=== PATIENT | male | born 1965 | race Caucasian/White ===

== ENCOUNTER 2018-06-03 06:27 | Inpatient (IN) | payer OTHER ==
[2018-04-20 08:23] VITALS: BMI 33.0
--- NOTE | 2018-05-03 12:49 | PAT Medication Instructions ---
Service Date May 03, 2018. Current Home Medication List Amitriptyline Hcl (Elavil), 1 TAB PO HS Amlodipine (Norvasc), 5 MG PO DAILY Bupropion (Wellbutrin Sr), 150 MG PO QAM Cetirizine (Zyrtec), 10 MG PO QAM PRN for Seasonal Allergies Methocarbamol (Robaxin), 500 MG PO TID Morphine Sulfate (Ms Contin), 60 MG PO Q12 Oxycodone Ir (Roxicodone Ir), 5 MG PO Q6H PRN for Pain Medication Instructions For Your Scheduled Surgery - Hold the following medications the morning of surgery: Methocarbamol (Robaxin), 500 MG PO TID - Take the following medications the morning of surgery with a sip of water: * OTHERWISE NOTHING TO EAT OR DRINK AFTER MIDNIGHT* Amlodipine (Norvasc), 5 MG PO DAILY Bupropion (Wellbutrin Sr), 150 MG PO QAM Morphine Sulfate (Ms Contin), 60 MG PO Q12 *UP TO 4 HOURS PRIOR TO SURGERY* Oxycodone Ir (Roxicodone Ir), 5 MG PO Q6H PRN for Pain *UP TO 4 HOURS PRIOR TO SURGERY* - Take the following medications as scheduled the night before surgery: Amitriptyline Hcl (Elavil), 1 TAB PO HS Cetirizine (Zyrtec), 10 MG PO QPM PRN for Seasonal Allergies Methocarbamol (Robaxin), 500 MG PO TID Morphine Sulfate (Ms Contin), 60 MG PO Q12 Oxycodone Ir (Roxicodone Ir), 5 MG PO Q6H PRN for Pain If you have any questions please call us at [phone] or [phone] or [phone]
--- NOTE | 2018-05-03 13:22 | DIAGNOSTIC IMAGING REPORT ---
CHEST 2 VIEWS ROUTINE CLINICAL HISTORY: Preoperative evaluation COMPARISON STUDY: Chest radiograph July 04, 2013. FINDINGS: Incidental note is made of an anterior cervical spine fusion. No pneumothorax or pleural effusion is noted. There is no consolidation or evidence for pulmonary edema. Borderline cardiomegaly is noted. IMPRESSION: No acute cardiopulmonary findings. Electronically signed by: Shaka Giraldo M.D. 05/03/2018 1:20 PM Dictated Date/Time: 05/03/2018 1:20 PM
[2018-05-03 13:30] LABS: PTT PATIENT 24.7 SECONDS (21.0-31.0)
--- NOTE | 2018-06-01 13:00 | HISTORY & PHYSICAL EXAMINATION ---
DATE OF ADMISSION: 06/03/2018 CHIEF COMPLAINT: Medial compartmental arthritis of the left knee. HISTORY OF PRESENT ILLNESS: Ed is a pleasant 52-year-old male who is about a year and a half status post left knee arthroscopy with continued knee pain. He was found to have medial compartmental arthritis during the scope procedure. Unfortunately, his knee pain has continued and he has continued to have swelling of his knee. He has failed multiple cortisone injections and has elected to proceed with a unicompartmental knee arthroplasty. PAST MEDICAL HISTORY: Significant for depression and chronic pain. PAST SURGICAL HISTORY: Significant for an L5-S1 fusion in 2005, a C5-C7 fusion in 2011 and a right shoulder arthroscopy and a left knee arthroscopy. ALLERGIES: None. MEDICATIONS: Include morphine, oxycodone, methocarbamol, amitriptyline, Wellbutrin, atorvastatin, and amlodipine. FAMILY HISTORY: Denies. SOCIAL HISTORY: He is , rarely drinks. Remains active. REVIEW OF SYSTEMS: He complains mostly of left knee pain. All other pertinent review of systems are negative. PHYSICAL EXAMINATION: GENERAL: He is awake, alert and oriented x3. He is in no apparent distress. He is very pleasant. HEENT: Pupils equal, round, reactive to light. Extraocular movements intact. Oral mucosa is pink and moist. HEART: Regular rate per radial pulse. LUNGS: Constance symmetrically bilaterally with no audible breath sounds. ABDOMEN: Soft, nontender, nondistended. MUSCULOSKELETAL: On physical examination of the left knee, he ambulates independently. His range of motion is from 0-120 degrees. He has significant tenderness to palpation along the medial joint line and over the distal medial femoral condyle. He has no pain on the lateral side. IMAGING DATA: X-rays of the left knee do show mild to moderate osteoarthritis mostly involving the medial compartment. There is some slight joint space narrowing. Arthroscopic pictures do show advanced grade 4 chondral changes off the distal medial femoral condyle. IMPRESSION: Medial compartmental arthritis of the left knee. PLAN: Will proceed with a left knee unicompartmental arthroplasty. Postoperatively, he will be kept overnight for postoperative medical management. We will discharge him to home the next day with [facility] physical therapy.
[~2018-06-03] VITALS: Ht 167.6 cm; Wt 93.2 kg
[2018-06-03] VITALS (9 sets, daily range): BP systolic 111–159; BP diastolic 65–95; PULSE 62–95; TEMP 36.5–36.9; O2SAT 92–98; Ht 167.6 cm; Wt 93.2 kg
[~2018-06-03 06:27] MED LIST: ACETAMINOPHEN 500 MG TAB PO SCH; AMIT25TA9 PO; AMLO5TAB3 PO; BUPR-79 PO; CEFAZOLIN 2000MG IV PUSH 15 ML IV SCH; CETI10TA84 PO; FAMOTIDINE 20 MG TAB PO SCH; GABAPENTIN 900 MG PO SCH; LACTATED RINGER'S 1000ML 1,000 ML IV SCH; LACTATED RINGER'S 1000ML 500 ML IV SCH; LACTATED RINGER'S 1000ML IV SCH; METH500T37 PO; MORP60TA69 PO; OXYC-90 PO; ROPIVACAINE 5MG/ML 30 ML 150 MG, BUPIVACAINE 0.5% MPF INJ 30 ML, EpINEphrine HCL INJ 0.... INFIL SCH
[2018-06-03] MEDS ORDERED: ROPIVACAINE 0.5% 5 MG/ML 30 ML VIAL ONE (06:34)
[2018-06-03] MEDS ORDERED: BUPIVACAINE 0.5 % 5 MG/1 ML PF 10ML VIAL ONE (06:34)
--- NOTE | 2018-06-03 06:42 | History & Physical Bridge Note ---
H&P Re-Evaluation Bridge Note: I have examined the patient, reviewed the History & Physical and in the interval since the performance of the History & Physical I have noted the following changes of clinical significance: No changes noted
[2018-06-03] MEDS ORDERED: OXYCODONE HCL IR 5 MG TAB (IMMEDIATE RELEASE) PO PRN (07:00)
[2018-06-03] MEDS ORDERED: BISACODYL 10 MG SUPP PR PRN (07:00)
[2018-06-03] MEDS ORDERED: METOCLOPRAMIDE HCL INJ 5 MG/ML 2 ML VIAL IV PRN (07:00)
[2018-06-03] MEDS ORDERED: MAGNESIUM HYDROXIDE SUSP 30 ML UDC PO PRN (07:00)
[2018-06-03] MEDS ORDERED: CETIRIZINE HCL 10 MG TAB PO PRN (07:00)
[2018-06-03] MEDS ORDERED: SOD PHOSPHATE/SOD BIPHOSPHATE ENEMA 132 ML BTL PR PRN (07:00)
[2018-06-03] MEDS ORDERED: ONDANSETRON INJ 2 MG/ML 2 ML VIAL IV PRN ×2 (07:00→08:15)
[2018-06-03] MEDS ORDERED: MoRPHine SULFATE 2 MG/ML CARP IV PRN (07:00)
[2018-06-03] MEDS ORDERED: ORTHO JOINT ANESTHETIC ONE (07:11)
[2018-06-03] MEDS ORDERED: BACITRACIN 50000 UNIT VIAL ONE (07:12)
[2018-06-03] MEDS ORDERED: MIDAZOLAM HCL 1 MG/ML 2ML VIAL ONE ×2 (07:43→08:43)
[2018-06-03] MEDS ORDERED: FENTANYL CITRATE INJ 50 MCG/1 ML 2 ML VIAL ONE (07:43)
[2018-06-03] MEDS ORDERED: LABETALOL HCL IV 5 MG/ML 20ML IV PRN (08:15)
[2018-06-03] MEDS ORDERED: HYDROmorphone INJ 2 MG/ML SYR/VIAL IV PRN (08:15)
[2018-06-03] MEDS ORDERED: ATROPINE SULFATE 0.1 MG/ML 5ML SYR IV PRN (08:15)
[2018-06-03] MEDS ORDERED: FENTANYL CITRATE INJ 50 MCG/1 ML 2 ML VIAL IV PRN (08:15)
[2018-06-03] MEDS ORDERED: NALOXONE HCL 0.4 MG/1 ML VIAL/CARP IV PRN (08:15)
[2018-06-03] MEDS ORDERED: FLUMAZENIL 0.1 MG/1 ML 10 ML VIAL IV PRN (08:15)
[2018-06-03] MEDS ORDERED: MEPERIDINE HCL 25 MG/ML CARP IV PRN (08:15)
[2018-06-03] MEDS ORDERED: PHENYLEPHRINE 100MCG/ML 5ML SYR IV PRN (08:15)
[2018-06-03] MEDS ORDERED: EpHEDrine SULFATE INJ 50 MG/ML AMP IV PRN (08:15)
[2018-06-03] MEDS: TRANEXAMIC ACID INJ 1,000 MG x 2 Bags IV SCH ×4 (08:44→12:44)
[2018-06-03] MEDS ORDERED: MoRPHine SULFATE CR 60 MG TAB (MS CONTIN) PO SCH (09:00)
[2018-06-03] MEDS ORDERED: LIDOCAINE HCL 2% 2 ML VIAL (20MG/ML) ONE (10:22)
[2018-06-03] MEDS ORDERED: PROPOFOL IV EMULSION 10 MG/ML 20 ML VIAL ONE (10:22)
[2018-06-03] MEDS ORDERED: GLYCOPYRROLATE INJ 0.2 MG/ML VIAL ONE (10:23)
--- NOTE | 2018-06-03 10:23 | [facility] Post Operative Brief Note ---
Immediate Operative Summary Operative Date Jun 03, 2018. Pre-Operative Diagnosis Left knee medial compartment arthritis Post-Operative Diagnosis Left knee medial compartment arthritis Procedure(s) Performed Left knee unicompartmental arthroplasty Surgeon Dr. Fernando Jd Edwards Consultant Surgeon(s) Kush Brink PA-C Estimated Blood Loss 5 cc Findings Consistent with Post-Op Diagnosis Specimens Left knee bone and tissue Anesthesia Type [facility]
--- NOTE | 2018-06-03 11:25 | DIAGNOSTIC IMAGING REPORT ---
L KNEE 1 OR 2 VIEWS ROUTINE CLINICAL HISTORY: AP/LATERAL IN PACU LEFT KNEE pain COMPARISON: None. DISCUSSION: Anatomic alignment post left knee medial joint arthroplasty. Expected soft tissue postoperative change. Good contact between prosthetic and underlying bone. IMPRESSION: Anatomic alignment post medial joint arthroplasty. The above report was generated using voice recognition software. It may contain grammatical, syntax or spelling errors. Electronically signed by: Eddie Thakkar M.D. 06/03/2018 11:23 AM Dictated Date/Time: 06/03/2018 11:23 AM
--- NOTE | 2018-06-03 11:44 | Anesthesiology Progress Note ---
Anesthesia Post Op Note Date & Time Jun 03, 2018 at 11:44 Vital Signs Pain Intensity: 0 Vital Signs Past 12 Hours Date Time Temp Pulse Resp B/P (MAP) Pulse Ox O2 Delivery O2 Flow Rate FiO2 06/03/18 11:35 72 16 116/68 94 Room Air 06/03/18 11:25 64 16 130/86 96 Room Air 06/03/18 11:15 68 16 126/77 99 Oxymask 5 06/03/18 11:05 71 14 112/68 100 Oxymask 5 06/03/18 10:57 36.5 71 16 102/65 93 Oxymask 10 06/03/18 06:56 36.6 85 18 159/95 98 Room Air Notes Mental Status: alert / awake / arousable, participated in evaluation Pt Amnestic to Procedure: Yes Nausea / Vomiting: adequately controlled Pain: adequately controlled Airway Patency, RR, SpO2: stable & adequate BP & HR: stable & adequate Hydration State: stable & adequate Anesthetic Complications: no major complications apparent
--- NOTE | 2018-06-03 12:17 | OPERATIVE REPORT ---
DATE OF OPERATION: 06/03/2018 PREOPERATIVE DIAGNOSIS: Medial compartmental arthritis of the left knee. POSTOPERATIVE DIAGNOSIS: Medial compartmental arthritis of the left knee. PROCEDURE: Left unicompartmental knee arthroplasty. SURGEON: Dr. Oleksandr Fernando. APPARATUS LINEMAN: Estevan Brink PA-C, whose assistance was necessary for retraction and closure. ANESTHESIA: Spinal with a left adductor nerve block. COMPLICATIONS: None. CONDITION: Stable to PACU. IMPLANTS USED: I used a [employer] [place] left total knee arthroplasty system with a size medium femur, a size C tibia and a 4 mm polyethylene bearing. INDICATIONS: Ed is a pleasant 52-year-old male, who has been dealing with chronic left knee pain. I did an arthroscopy on about a year ago showed rather significant medial compartmental arthritis. He has been swelling and having pain over the past year. After failing extensive conservative treatment, he elected to proceed with a unicompartmental knee arthroplasty. OPERATION AND FINDINGS: On 06/03/2018, he arrived at [facility] for the above procedure. He was seen in the preoperative holding and the operative extremity was identified and signed. He was given a preoperative antibiotic, taken back to the operating room, laid on the table in supine position and given basic sedation. The left knee was then prepped and draped in sterile fashion. Time-out was done. The patient's operative extremity was properly identified. A longitudinal incision was made just medial to the extensor mechanism. Dissection was taken down to the patella and a medial parapatellar arthrotomy was used. The medial retinaculum was released. The knee was exposed. There was arthritis throughout the distal medial femoral condyle, mild arthritis in the patellofemoral joint. The ACL was intact. The lateral compartment looked good. A size medium spoon seemed to be the best fit. An external tibial guide was then attached along with a size 4 G clamp. The tibial cutting guide was then pinned and a sagittal saw was used to make the sagittal resection and an oscillating saw was used to make the transverse resection. The proximal tibia was then removed. A drill was sent down the center of the femoral canal, followed by a long intramedullary guide. Off that guide, a cross-linked was used to clamp on the distal femur. Two drill holes were made in the distal femur in line with the medial condyle. A posterior resection guide was impacted into place and the posterior portion of the medial femoral condyle was resected. A 0 spigot was then impacted into place and a Mill was used to mill the distal femur. A trial femur was placed followed by a size C trial tibia. In flexion, the spacer measured to be a size 4, and in extension, it measured to be a size 2. The trials were all removed. The size 2 spigot was then impacted into place and the distal femur was milled. The more anterior femur was then milled. A trial femur was then impacted into place followed by the size C tibia. A size 4 insert felt to be stable both in flexion and extension. Trials were removed. Osteophytes were removed. A toothbrush saw was used to resect the keel for the tibial plate. The wound was irrigated. The distal femur was drilled with several drill holes to promote cement interdigitation. The final components were then cemented in place with [place]os-G cement. Once cement had hardened, a size 4 polyethylene insert seemed to be the best fit and the final size 4 poly was then snapped into place. The knee was brought through a full range of motion and felt to be stable. Surrounding soft tissues were injected with 100 mL of an orthopedic pain control cocktail. The knee was irrigated with 3 liters of normal saline solution with bacitracin. The tourniquet was deflated. Hemostasis was easily controlled. The extensor mechanism was then closed with #1 Vicryl suture. Skin was closed with 2-0 Vicryl, 3-0 V-Loc suture and mann. He was then placed in a soft compressive dressing, transferred to a litter and taken to the postanesthesia care unit in stable condition. He tolerated the procedure well. I attest to the content of the Intraoperative Record and any orders documented therein. Any exception s are noted below.
[2018-06-03] MEDS ORDERED: NURSING VERBAL MED ORDER ONE (12:45)
[2018-06-03] MEDS: MULTIVITAMIN TAB PO SCH (13:28)
[2018-06-03] MEDS: AMLODIPINE BESYLATE 5 MG TAB PO SCH (13:58)
[2018-06-03] MEDS: KETOROLAC TROMETHAMINE 30 MG/ML VIAL IV. SCH ×2 (13:58→21:19)
[2018-06-03] MEDS: ACETAMINOPHEN 500 MG TAB PO SCH ×2 (13:59→21:19)
[2018-06-03] MEDS: BuPROPion SR 150 MG TABCR PO SCH (13:59)
[2018-06-03] MEDS: METHOCARBAMOL 500 MG TAB PO SCH ×2 (13:59→21:20)
[2018-06-03] MEDS: SODIUM CHLORIDE 0.9% 1000ML 1,000 ML IV SCH (16:34)
[2018-06-03] MEDS: CEFAZOLIN IV 2,000 MG in SYRINGE 0 ML IV SCH (16:35)
[2018-06-03] MEDS ORDERED: AMITRIPTYLINE HCL 25 MG TAB PO SCH (21:00)
[2018-06-03] MEDS ORDERED: SENNA 8.6 MG TAB PO SCH (21:00)
[2018-06-03] MEDS: DOCUSATE SODIUM 100 MG CAP PO SCH (21:19)
[2018-06-03] MEDS: ASPIRIN 325 MG ECTAB PO SCH (21:20)
[2018-06-03] MEDS: MoRPHine SULFATE CR 60 MG TAB (MS CONTIN) PO SCH (21:24)
[2018-06-04] MEDS: CEFAZOLIN IV 2,000 MG in SYRINGE 0 ML IV SCH (00:22)
[2018-06-04] MEDS: KETOROLAC TROMETHAMINE 30 MG/ML VIAL IV. SCH ×2 (01:57→07:34)
[2018-06-04] MEDS: SODIUM CHLORIDE 0.9% 1000ML 1,000 ML IV SCH (01:58)
[2018-06-04 03:40] VITALS: BP 118/67; PULSE 75; TEMP 36.8; O2SAT 98
[2018-06-04] MEDS: ACETAMINOPHEN 500 MG TAB PO SCH (05:45)
[2018-06-04 06:01] VITALS: BP 118/67; PULSE 75; TEMP 36.8; O2SAT 98
[2018-06-04 06:26] LABS: HEMATOCRIT 36.7 % (42-52); HEMOGLOBIN 12.4 g/dL (14.0-18.0); MEAN CELL VOLUME 92.9 fL (80-100); MEAN CORPUSCULAR HEMOGLOBIN 31.4 pg (25-34); MEAN CORPUSCULAR HGB CONC 33.8 g/dl (32-36); MEAN PLATELET VOLUME 10.3 fL (7.4-10.4); PLATELET COUNT 246 K/uL (130-400); RED CELL DISTRIBUTION WIDTH CV 13.4 % (11.5-14.5); RED CELL DISTRIBUTION WIDTH SD 45.5 fL (36.4-46.3); WHITE BLOOD COUNT 11.09 K/uL (4.8-10.8)
[2018-06-04 06:50] LABS: CALCIUM 8.1 mg/dl (8.5-10.1); CREATININE 1.02 mg/dl (0.60-1.40); POTASSIUM 3.8 mmol/L (3.5-5.1)
--- NOTE | 2018-06-04 08:25 | Discharge Instructions ---
Discharge Instructions Date of Service Jun 04, 2018. Admission Reason for Admission: Left Knee Degenerative Joint Disease Discharge Discharge Diagnosis / Problem: Left Partial Knee Discharge Goals Goal(s): Decrease discomfort, Improve function Activity Recommendations Activity Limitations: as noted below . Instructions / Follow-Up Instructions / Follow-Up Activity and Therapy Recommendations: * If you are using [facility] then Physical Therapy will be provided until they feel you are ready to start Outpatient Physical Therapy. If you are not using a Home Health agency then Outpatient Physical Therapy should start about 3-5 days from your day of surgery. Therapy will last about 6-10 weeks * It is important not to put a pillow under your knee when you are relaxing or sleeping. It is just as important to make sure you are getting your knee perfectly straight as it is to regain your knee bend. * You were shown a series of exercises in the hospital. Do these exercises three times each day including the exercises you were shown in physical therapy. * Get up and walk several times each day. For the first four weeks, try not to stand or walk for more than one hour at a time. If you do stand or walk for more than one hour, you will not hurt anything, but your leg will likely swell. * As you feel comfortable, you may change from the walker or crutches to a cane and then to independent walking. Medications: * Narcotic You will likely be sent home from the hospital with a prescription for the narcotic pain medication that worked best throughout your stay. * Aspirin Most patients will be required to take Aspirin 325mg twice a day for 6 weeks after surgery. This is obtained [id number] and a prescription is not necessary. * Other medications may be prescribed for specific circumstances. If you have any questions, please call the office at . * Resume previous home medications unless otherwise instructed TEDs/Elastic Stockings: The white elastic stockings help limit swelling and prevent blood clots from forming in your legs.~ The more you wear them, the more they work. Wear them for six weeks. Dressing Care: If the incision is not draining then you may leave the mann open to air. If there is a little bit of drainage or if the mann are getting stuck on your clothing then cover the incision with a dry dressing. The mann will be removed at your 2 week follow-up appointment. Showering: You may shower 5 days from the day of surgery. Let the soapy shower water run over the mann and pat them dry. Do not scrub or soak the incision. Things To Watch For: * Drainage from the incision site that occurs more than one week after your surgery. * Increased redness at the incision site. * Fever above 102 degrees Fahrenheit. * Unusual chest pain or shortness of breath. * Call [facility] at with any of the above problems Follow-Up Visit: Follow-up with Dr. Fernando 2 weeks after your day of surgery. An appointment was probably scheduled when you signed-up for surgery in the office. If you have any questions call Office Instructions: More detailed instructions as well as Frequently Asked Questions were provided in a folder by our office when you signed-up for surgery. Please review these instructions when you get home. If you have any further questions or concerns, please feel free to call the office at [phone] Current Hospital Diet Patient's current hospital diet: Regular Diet Discharge Diet Recommended Diet: Regular Diet Procedures Procedures Performed: Left knee unicompartmental arthroplasty Pending Studies Studies pending at discharge: no Medical Emergencies . Who to Call and When: Medical Emergencies: If at any time you feel your situation is an emergency, please call [phone] immediately. . Non-Emergent Contact Non-Emergency issues call your: Surgeon Call Non-Emergent contact if: wound has increased drainage, wound has increased redness . "Provider Documentation" section prepared by Oleksandr Fernando. .
[2018-06-04] MEDS ORDERED: ASPEC325 PO (08:27)
--- NOTE | 2018-06-04 08:58 | PROGRESS NOTE ---
DATE: 06/04/2018 CHIEF COMPLAINT: Status post left unicompartmental knee arthroplasty postop day #1. PROGRESS: Rajiv was seen and examined at bedside today. Overall, he is doing very well. He has a little bit of soreness in his knee, but it is not too bad. He was up and ambulating a little bit yesterday and went to a chair. His pain is controlled. He has no complaints. PHYSICAL EXAMINATION: LEFT KNEE: The dressing is clean and dry. His leg is out in full extension. He has active dorsiflexion and plantarflexion of his left ankle and sensation is intact throughout. LABORATORY DATA: He has an H and H today of 12.4 and 36.7. His glucose is 120. His vital signs are all stable on room air. He is voiding on his own. IMAGING DATA: X-rays postoperatively of the left knee show the prosthesis to be in anatomic alignment without any evidence of fracture, dislocation or loosening. IMPRESSION: Status post left unicompartmental knee arthroplasty postop day #1. PLAN: At this point, he is doing very well and happy with his progress. He will be up and ambulating today with physical therapy. He is on aspirin for DVT prophylaxis. He will be discharged to home later today with physical therapy.
[2018-06-04] MEDS: MoRPHine SULFATE CR 60 MG TAB (MS CONTIN) PO SCH (09:15)
[2018-06-04] MEDS: DOCUSATE SODIUM 100 MG CAP PO SCH (09:15)
[2018-06-04] MEDS: BuPROPion SR 150 MG TABCR PO SCH (09:15)
[2018-06-04] MEDS: MULTIVITAMIN TAB PO SCH (09:15)
[2018-06-04] MEDS: ASPIRIN 325 MG ECTAB PO SCH (09:16)
[2018-06-04] MEDS: METHOCARBAMOL 500 MG TAB PO SCH (09:17)
[2018-06-04] MEDS: AMLODIPINE BESYLATE 5 MG TAB PO SCH (09:17)
[2018-06-04 09:34] VITALS: BP 118/67; PULSE 75; TEMP 36.8; O2SAT 98
--- NOTE | 2018-06-04 09:57 | DISCHARGE SUMMARY ---
DISCHARGE DIAGNOSIS: Medial compartmental arthritis of the left knee. PROCEDURE: Left partial knee replacement on 06/03/[address] Oleksandr Fernando. DISCHARGE INSTRUCTIONS: 1. Aspirin 325 mg twice a day for 6 weeks. 2. KATIE hose stockings for 6 weeks. 3. Elavil 25 mg at night. 4. Norvasc 5 mg daily. 5. Wellbutrin 150 mg daily. 6. Zyrtec 10 mg daily as needed. 7. Robaxin 500 mg 3 times a day. 8. MS Contin 60 mg q. 12 hours. 9. Oxycodone 5 mg every 6 hours as needed. 10. Weightbear as tolerated. 11. Follow up with Dr. Fernando in 2 weeks. 12. Call the office of Dr. Fernando with any questions or concerns. HOSPITAL COURSE: Ed is a pleasant 52-year-old male who presented to my office with chronic increasing left knee pain. Knee arthroscopy last year showed significant medial compartmental arthritis. Unfortunately, a year after the arthroscopy, he continued to have pain and swelling and elected to proceed with a partial knee arthroplasty. On 06/03/2018, he arrived at [facility] and underwent a partial knee replacement without complication. He had a spinal anesthetic and a left adductor nerve block. Postoperatively, he was started on aspirin for DVT prophylaxis and discharged to general orthopedic floor. His hospital course was uneventful. On postop day #1, his H and H were stable at 12.4 and 36.7. His pain was well controlled. He was up and ambulating with physical therapy. He was subsequently discharged to home with outpatient physical therapy at [facility].
== END 2018-06-04 11:04 | disposition home or self-care (01) | DRG 470 ==
LOC: C.ACU 06:27 → C.3E 06:51 → ENRESERV 11:36
PROVIDERS: ADMIT Orthopaedic Surgery; ATTEND Orthopaedic Surgery
PROC: 0SRD0J9 Replacement of Left Knee Joint with Synthetic Substitute, Cemented, Open Approach (ICD-10-PCS; principal; 2018-06-03 08:45)
DX: M17.12 Unilateral primary osteoarthritis, left knee (principal); F32.9 Major depressive disorder, single episode, unspecified; Z98.1 Arthrodesis status